=== PATIENT | male | born 1990 | race Caucasian/White ===

== ENCOUNTER 2024-05-06 05:47 | Emergency (ER) | payer OTHER, SELFPAY ==
[2024-05-06 06:06] VITALS: BP 157/91; PULSE 89; RESP 16; TEMP 36.6; O2SAT 100; BMI 32.1
--- NOTE | 2024-05-06 06:38 | ED.DENTAL ---
HPI - Dental/Oral General Chief complaint: Dental/Oral Stated complaint: tooth pain Time Seen by Provider: 05/06/24 06:34 Source: patient Mode of arrival: Ambulatory History of Present Illness HPI Narrative: 33-year-old gentleman new to the area no significant medical injuries fractured left lower 1st molar. It is tender he has had similar incidences previously that became infected he presents today requesting antibiotics. He recognizes that he can not use any medications we and I ibuprofen and Tylenol as he works as a customer service professional. Dental insurance becomes available to him on May 17. He has not complaining of acute discharge but does note over the last 12 hours it is becoming more painful. Related Data Previous Rx's Medication Instructions Recorded clindamycin HCl 300 mg capsule 300 mg PO TID 7 days #21 caps 05/06/24 Allergies Allergy/AdvReac Type Severity Reaction Status Date / Time Penicillins Allergy Verified 05/06/24 06:06 Patient History Social History Smoking Status: Current every day smoker Smoking Status: Current every day smoker Substance Use Type: marijuana Exam Initial Vital Signs Initial Vital Signs: Vital Signs Temperature 97.8 F 05/06/24 06:06 Pulse Rate 89 05/06/24 06:06 Respiratory Rate 16 05/06/24 06:06 Blood Pressure 157/91 H 05/06/24 06:06 Pulse Oximetry 100 05/06/24 06:06 Oxygen Delivery Method Room Air 05/06/24 06:06 General: Alert appropriate in no acute distress HEENT: Posterior half of the left lower 1st molar is fractured. No cervical adenopathy appreciated. No obvious abscess or drainage currently Respiratory: Able to speak in full sentences, no obvious respiratory distress Skin: No obvious rashes, warm and dry Neurologic: Grossly intact no obvious asymmetries or abnormalities Psych: appropriate insight and affect, cooperative Course Vital Signs Vital signs: Vital Signs - 8 hr 05/06/24 06:06 Temperature 97.8 F Pulse Rate 89 Respiratory Rate 16 Blood Pressure 157/91 H Pulse Oximetry 100 Oxygen Delivery Method Room Air MDM - Dental/Oral MDM Narrative Medical decision making narrative: 33-year-old gentleman who does not have dental insurance until May 17. Fractured left lower 1st molar. Requesting antibiotics to prevent infection. Noticing increasing pain over the last 12 hours. No significant drainage or abscess appreciated. He has ibuprofen and Tylenol use for pain control and requests no narcotics. Prescription for clindamycin is given as he reports an allergy to penicillin. Questions are answered he is safe for discharge Discharge Plan Departure Patient Disposition: Home Clinical Impression: Fracture of tooth Qualifiers: Encounter type: initial encounter Fracture type: closed Qualified Code(s): S02.5XXA - Fracture of tooth (traumatic), initial encounter for closed fracture Instructions: Tooth Fracture Activity Restrictions/Additional Instructions: Thank you for coming in today I am sorry that your tooth fractured. We talked briefly about using dental wax to help cover up the exposed edge so it does not hurt quite so much Using 400 mg of ibuprofen (2 [id number] pills) and 1 Tylenol every 6 hours can be very helpful in controlling pain. I have given you a prescription for clindamycin to use for the next 7 days. I would recommend dental appointment as soon as your insurance kicks in Prescriptions: New clindamycin HCl 300 mg capsule 300 mg PO TID 7 Days Qty: 21 0RF Stand Alone Forms: Patient Portal/API, Work Release Note
[2024-05-06 06:49] VITALS: BP 145/78; PULSE 66; RESP 18; O2SAT 99
== END 2024-05-06 06:50 | disposition home or self-care (01) ==
PROVIDERS: Emergency Provider Emergency Medicine
DX: S02.5XXA Fracture of tooth (traumatic), initial encounter for closed fracture (principal)
CPT/HCPCS: 99281